=== PATIENT | female | born 1960 | race Caucasian/White ===

== ENCOUNTER 2018-06-16 10:22 | Emergency (ER) | payer MEDICARE, MEDICAID ==
[~2018-06-16] VITALS: Ht 165.1 cm; Wt 63.7 kg
[~2018-06-16 10:22] MED LIST: ADV50100 INH; ALBU8HFA PO; CLON-528 PO; CLONAZEPAM 0.5 MG; CYCL-1 PO; FLUTICASONE; HYDR12.522 PO; HYDROCHLOROTHIAZIDE 12.5 MG; LEVO500T2 PO; LIDO700A5 TOP; LOSA50TA3 PO; LOSARTAN 50 MG; PRED10TA23 PO; RANI-366 PO; [UNRECOGNIZED DRUG - OTHER]
[2018-06-16 11:50] LABS: BASOPHILS % (AUTO) 0.3 % (0-1); EOSINOPHILS # (AUTO) 0.1 X10'3 (0-0.9); EOSINOPHILS % (AUTO) 1.3 % (0-6); HEMOGLOBIN 13.2 g/dl (12.0-16.0); LYMPHOCYTES # (AUTO) 0.8 X10'3 (1.1-4.8); LYMPHOCYTES % (AUTO) 11.7 % (21-51); MEAN CORPUSCULAR HEMOGLOBIN 34.7 PG (27.0-31.0); MEAN CORPUSCULAR HGB CONC 34.7 % (33.0-36.5); MEAN CORPUSCULAR VOLUME 99.9 FL (78-98); MEAN PLATELET VOLUME 9.1 FL (7.4-10.4); MONOCYTES # (AUTO) 0.5 X10'3 (0-0.9); MONOCYTES % (AUTO) 6.3 % (2-12); NEUTROPHILS # (AUTO) 5.8 X10'3 (1.8-7.7); NEUTROPHILS % (AUTO) 80.4 % (42-75); PLATELET COUNT 159 X10'3 (140-440); RED BLOOD COUNT 3.81 X10'6 (4.20-5.60); WHITE BLOOD COUNT 7.2 X10'3 (4.5-11.0)
[2018-06-16] MEDS ORDERED: AZIT250T PO (11:59)
[2018-06-16 12:06] LABS: ALANINE AMINOTRANSFERASE 104 U/L (12-78); ALBUMIN 3.3 G/DL (3.4-5.0); ALBUMIN/GLOBULIN RATIO 0.7 (1.1-1.5); ALKALINE PHOSPHATASE 168 IU/L (46-116); ANION GAP 15 (8-16); ASPARTATE AMINO TRANSFERASE 285 U/L (10-37); BILIRUBIN,TOTAL 0.8 MG/DL (0.1-1.0); BLOOD UREA NITROGEN 15 MG/DL (7-18); BUN/CREATININE RATIO 10.6 (6.6-38.0); CALCIUM 8.7 MG/DL (8.5-10.1); CHLORIDE 100 MMOL/L (99-107); CREATININE 1.42 MG/DL (0.40-0.90); GLUCOSE 113 MG/DL (70-104); POTASSIUM 3.1 MMOL/L (3.5-5.1); SODIUM 141 MMOL/L (135-145); TOTAL CARBON DIOXIDE 25.9 MMOL/L (24-32); TOTAL PROTEIN 7.9 G/DL (6.4-8.2); eGFR 38 ML/MIN
[2018-06-16 12:28] VITALS: BP 120/91
== END 2018-06-16 12:29 | disposition home or self-care (01) ==
LOC: ER 10:22
DX: J42 Unspecified chronic bronchitis (principal); I10 Essential (primary) hypertension; G89.29 Other chronic pain; Z88.8 Allergy status to other drugs, medicaments and biological substances; Z79.2 Long term (current) use of antibiotics; Z79.899 Other long term (current) drug therapy
CPT/HCPCS: 36415; 71046; 80053; 83605; 85025; 87040; 99285

== ENCOUNTER 2021-10-19 07:11 | Day surgery (SDC) | payer MEDICARE, MEDICAID ==
[~2021-10-19] VITALS: Ht 165.1 cm; Wt 67.5 kg
[2021-10-19] VITALS (9 sets, daily range): BP systolic 119–146; BP diastolic 73–89
[~2021-10-19 07:11] MED LIST changes: -ADV50100 INH; -ALBU8HFA PO; -CLON-528 PO; -CLONAZEPAM 0.5 MG; -CYCL-1 PO; +FLUT16SP2 BOTHNARES; -FLUTICASONE; +GABA100C PO; -HYDR12.522 PO; -HYDROCHLOROTHIAZIDE 12.5 MG; -LEVO500T2 PO; -LIDO700A5 TOP; -LOSARTAN 50 MG; +NOR5T PO; -PRED10TA23 PO; -RANI-366 PO; -[UNRECOGNIZED DRUG - OTHER]
[2021-10-19] MEDS ORDERED: albumin 25% 100mL bottle x 1 IV PRN (07:45)
[2021-10-19] MEDS ORDERED: FURO40TA4 PO (07:46)
[2021-10-19] MEDS ORDERED: CETI10CA PO (07:46)
[2021-10-19] MEDS ORDERED: LIDOcaine 1% 30ml preserv. free vial IJ STA (08:05)
--- NOTE | 2021-10-19 12:04 | NUR ---
Pt forgot to take home DC instructions. Phoned pt and went over post paracentesis care instructions and med rec info, pt verbalized understanding.
== END 2021-10-19 10:25 | disposition home or self-care (01) ==
LOC: SSTAY O 07:11
PROVIDERS: ATTEND Radiology Vascular & Interventional Radiology
DX: K70.31 Alcoholic cirrhosis of liver with ascites (principal); I25.10 Atherosclerotic heart disease of native coronary artery without angina pectoris; I10 Essential (primary) hypertension; J45.909 Unspecified asthma, uncomplicated; G89.29 Other chronic pain; F10.10 Alcohol abuse, uncomplicated; M19.90 Unspecified osteoarthritis, unspecified site; F32.9 Major depressive disorder, single episode, unspecified; G47.00 Insomnia, unspecified; Z87.440 Personal history of urinary (tract) infections; Z88.8 Allergy status to other drugs, medicaments and biological substances; Z79.899 Other long term (current) drug therapy
CPT/HCPCS: 49083; P9047